=== PATIENT | male | born 1995 ===

== ENCOUNTER → 2016-10-14 | Outpatient (CLI) | payer OTHER ==
--- NOTE | 2016-10-14 13:42 | DIAGNOSTIC IMAGING REPORT ---
RIGHT ANKLE MIN 3 VIEWS CLINICAL HISTORY: Right ankle pain following twisting injury. COMPARISON: None FINDINGS: Alignment of the right ankle is anatomic. Talar dome is intact. There is no acute fracture. There is minimal lateral ankle soft tissue swelling. IMPRESSION: No acute fracture or dislocation of the right ankle. Electronically signed by: Cachorro Sommer M.D. 10/14/2016 1:41 PM Dictated Date/Time: 10/14/2016 1:40 PM
== END | disposition home or self-care (01) ==
LOC: C.RDSM 13:30
PROVIDERS: ATTEND Physical Medicine & Rehabilitation Sports Medicine
DX: M25.571 Pain in right ankle and joints of right foot (principal); R52 Pain, unspecified